=== PATIENT | male | born 1985 | race Caucasian/White ===

== ENCOUNTER 2024-12-15 10:53 | Emergency (ER) | payer SELFPAY ==
[~2024-12-15] VITALS: Ht 165.1 cm; Wt 68.0 kg
[2024-12-15 11:01] VITALS: O2SAT 97
[2024-12-15] MEDS: BACITRACIN ZINC OINT UDPKT TOP ONE (12:29)
[2024-12-15] MEDS: TETANUS, DIPHTHERIA, PERTUSSIS VAC/PF 0.5ML (>10YR OLD) IM ONE (12:29)
[2024-12-15] MEDS: LIDOCAINE HCL/EPINEPHRINE 1%-EPI 1:100,000 20ML VIAL INFIL ONE (12:29)
[2024-12-15] MEDS ORDERED: AMOX1TAB16 MT (16:03)
[2024-12-15] MEDS ORDERED: TOPUD MT (16:03)
[2024-12-15 16:38] VITALS: BP 144/95; PULSE 99; RESP 16; TEMP 36.7; O2SAT 97
== END 2024-12-15 16:39 | disposition home or self-care (01) ==
LOC: ER 10:53
DX: S01.01XA Laceration without foreign body of scalp, initial encounter (principal); S01.81XA Laceration without foreign body of other part of head, initial encounter; S51.812A Laceration without foreign body of left forearm, initial encounter; E11.9 Type 2 diabetes mellitus without complications; F10.129 Alcohol abuse with intoxication, unspecified; Y08.89XA Assault by other specified means, initial encounter; Y93.89 Activity, other specified; Y92.89 Other specified places as the place of occurrence of the external cause; Y99.8 Other external cause status
CPT/HCPCS: 73090; 70450; 70486; 90715; 12004; 12014; 90471; 99285; J2004; Z7610 ×2